=== PATIENT | female | born 1970 | race Caucasian/White ===

== ENCOUNTER 2025-03-29 07:08 | Emergency (ER) | payer OTHER, SELFPAY ==
[2025-03-29] VITALS (42 sets, daily range): BP systolic 86–113; BP diastolic 57–73; PULSE 73–107; RESP 12–20; TEMP 36.7–36.9; O2SAT 97–100
--- NOTE | ~2025-03-29 | XR_ITS ---
Examination: XR chest 1V portable Clinical History: dizzy, weak Comparison: None Technique: Portable AP Findings: Heart size normal. Lungs clear. No acute bony abnormality. IMPRESSION: 1. No acute cardiopulmonary findings given portable technique. Reviewed, dictated and finalized at location R.
--- NOTE | ~2025-03-29 | XR_ITS ---
X-rays left hip with pelvis Indication: Postop Comparison: None Technique: 2 views left hip, with AP pelvis Findings/Impression: 1. Left hip prosthesis. Slight gap between prosthetic neck and lesser trochanter. Otherwise no periprosthetic lucency or fracture. 2. No pelvic or right hip abnormality identified given single projection. Reviewed, dictated and finalized at location R.
--- NOTE | 2025-03-29 07:14 | ECG_ITS ---
Test Date: 2025-03-29 07:13:53 Measurements Intervals [place] Rate: 90 P: 11 NC: 178 QRS: -12 QRSD: 89 T: 14 QT: 346 QTc: 424 Interpretive Statements SINUS RHYTHM LOW QRS VOLTAGE IN PRECORDIAL LEADS [QRS DEFLECTION < 1.0 mV IN CHEST LEADS] OTHERWISE NORMAL ECG No previous ECG available for comparison Electronically Signed On 03-29-2025 16:15:03 CDT by Mark Anthony Espinoza M.D.
--- NOTE | 2025-03-29 07:22 | PC.NURSE ---
Pt arrived via ems with IVF running. made aware [facility] to continue NS IVF bolus.
[2025-03-29] MEDS: SODIUM CHLORIDE 0.9% IV 1,000 ML 999 ML IV CONT (07:23)
--- NOTE | 2025-03-29 07:34 | ED_ITS ---
HPI - General Adult General Chief complaint: Fever Stated complaint: fever Time Seen by Provider: 03/29/25 07:18 History of Present Illness HPI narrative: 54-year-old female presenting to the emergency department for evaluation for rapid heart rate low blood pressure and feeling ill in general. Patient states she did have a hip replacement on the left done at [facility] 2 days ago. Patient reports that she suspect she had significant blood loss because her hemoglobin had dropped and they kept her overnight due to low blood pressure. Patient reports she had been eating and drinking well a yesterday. this morning patient woke up to take some extra Tylenol because she was having some left hip pain and noticed that she just did not feel well and suspected she was having rapid heart rate it was until approximately 6:00 a.m. when she put her watch on and noticed that her heart rate was running approximately 180 beats per minute. Patient did take an aspirin at that time and states within 30 minutes her heart rate did improve. upon arrival emergency department patient did have some low blood pressure with a systolic blood pressure 89/60. Patient states her blood pressure typically runs 100/60. Patient denies any worsening left hip pain. Patient denies any nausea vomiting diarrhea. Patient does have some cough at time of evaluation. Related Data Allergies Allergy/AdvReac Type Severity Reaction Status Date / Time nitrofurantoin Allergy Unknown HIVES Verified 03/29/25 07:11 rice AdvReac Severe Anaphylaxis Verified 03/29/25 07:11 levofloxacin AdvReac Unknown BODY ACHES Verified 03/29/25 07:11 hives Review of Systems 2 Review of Systems: All systems reviewed & are unremarkable except as noted in HPI and below Exam 2 Narrative: APPEARANCE: Well appearing, no pain, no distress, well-nourished. HEAD: normocephalic, atraumatic. EYES: PERRLA/EOMI, conjunctivae clear. NOSE: Normal no drainage EARS:TMS clear with good light reflex. THROAT: Pharynx clear, no exudate. NECK: Supple. No adenopathy, no masses. RESPIRATORY: Airway patent, respirations nonlabored. Clear to auscultation bilaterally, no rales, rhonchi, wheezing. CARDIOVASCULAR: Regular rate and rhythm without murmurs rubs or gallops. ABDOMINAL: Soft, nontender, nondistended, normal bowel sounds MUSCULOSKELETAL: Dressing intact over left hip with no significant tenderness or erythema, some medial ecchymosis NEURO: Alert. Cranial nerves II through XII intact. Good gait. Good coordination SKIN: Warm, dry. Normal Color Course Vital Signs Vital signs: Vital Signs Temperature 98.5 F 03/29/25 07:04 Pulse Rate 103 H 03/29/25 07:04 Respiratory Rate 16 03/29/25 07:04 Blood Pressure 89/60 L 03/29/25 07:04 Pulse Oximetry 100 03/29/25 07:04 Oxygen Delivery Room Air 03/29/25 07:04 Temperature 98.1 F 03/29/25 09:30 Pulse Rate 76 03/29/25 12:18 Respiratory Rate 13 03/29/25 12:18 Blood Pressure 113/73 03/29/25 12:18 Pulse Oximetry 100 03/29/25 12:18 Oxygen Delivery Room Air 03/29/25 07:04 Medical Decision Making MDM Narrative Medical decision making narrative: 54-year-old female presents to the emergency department for evaluation for tachycardia and feeling ill this morning. Patient reports her blood pressure typically runs around 105 systolic. During patient's orthostatic vitals this was her general pressure. Patient reports she does feel improved after rehydration. Patient did receive 2 L of lactated Ringer's. Patient is currently afebrile with no leukocytosis and hemoglobin of 7.3. This is similar to her postop hemoglobin level. Family states that the patient lost approximately 1 L blood during the procedure. Patient's INR is 1.2. No acute abnormalities on the patient's CMP. Patient's CRP is mildly elevated but this could be explained by the recent surgical procedure UA was negative for infection patient was negative for influenza RSV and for COVID. Hip x-ray showed no evidence postop complication chest x-ray was negative for acute cardiopulmonary abnormality. On re-evaluation patient does feel improved and after lengthy discussion with both patient and family are comfortable the plan for discharge to home. They will be discharged home with additional Reglan for nausea control. Patient was advised to start iron supplementation after her stomach settles down. She was also encouraged close follow-up with her primary care physician and with her surgeon. They were also encouraged to return to the emergency department if they had any worsening symptoms. All questions concerns were addressed. Differential Diagnosis Differential Diagnosis: cellulitis, UTI, pulmonary embolism, pneumonia, COVID, RSV, influenza, postop infection Vital Signs Vital Signs: Vital Signs Temperature 98.5 F 03/29/25 07:04 Pulse Rate 103 H 03/29/25 07:04 Respiratory Rate 16 03/29/25 07:04 Blood Pressure 89/60 L 03/29/25 07:04 Pulse Oximetry 100 03/29/25 07:04 Oxygen Delivery Room Air 03/29/25 07:04 Temperature 98.1 F 03/29/25 09:30 Pulse Rate 76 03/29/25 12:18 Respiratory Rate 13 03/29/25 12:18 Blood Pressure 113/73 03/29/25 12:18 Pulse Oximetry 100 03/29/25 12:18 Oxygen Delivery Room Air 03/29/25 07:04 Lab Data Lab results reviewed: Yes I reviewed the patient's lab results. 03/29/25 07:47 03/29/25 07:47 Labs: Lab Results 03/29/25 03/29/25 Range/Units 07:47 10:29 WBC 8.6 (4.5-10.0) K/mm3 RBC 2.51 L (4.2-5.4) M/mm3 Hgb 7.3 L (12.0-15.0) g/dL Hct 22.6 L (37.0-47.0) % MCV 90.0 (80-100) fl MCH 29.1 (26-34) pg MCHC 32.3 (32-36) g/dl RDW 13.6 (11.5-14.5) % Plt Count 124 L (150-375) k/mm3 MPV 11.6 H (7.4-10.4) fl Immature Gran % (Auto) 0.5 (0-0.5) % Neut % (Auto) 75.5 H (45.5-73.1) % Lymph % (Auto) 15.1 L (18.3-44.2) % Luce % (Auto) 8.0 (2.6-8.5) % Eos % (Auto) 0.3 (0-4.4) % Baso % (Auto) 0.6 (0.2-1.2) % Lymph # (Auto) 1.30 (0.9-3.2) K/mm3 Luce # (Auto) 0.7 H (0.1-0.6) K/mm3 Eos # (Auto) 0.0 (0-0.3) K/mm3 Baso # (Auto) 0.1 (0.0-0.1) K/mm3 Abs Immat Gran (auto) 0.04 H (0.00-0.031) K/mm3 Absolute Neuts (auto) 6.5 (1.3-6.7) K/mm3 Absolute Nucleated RBC 0.000 (0.0-0.012) K/mm3 Nucleated RBC % 0.0 (0.0-0.2) % % Immature Plt Fraction 5.3 (0.9-11.2) % PT 15.2 H (11.1-14.7) Seconds INR 1.2 APTT 29.3 (22.3-36.8) Seconds Sodium 136 L (137-145) mmol/L Potassium 3.4 (3.4-5.0) mmol/L Chloride 107 (98-107) mmol/L Carbon Dioxide 23 (22-30) mmol/L Anion Gap 6 (4-12) mmol/L BUN 12 (7-17) mg/dL Creatinine 0.72 (0.7-1.0) mg/dL Estim Creat Clear Calc 96 ml/min Estimated GFR > 60 (59 - ) Glucose 98 (65-110) mg/dL Lactic Acid 1.1 (0.7-2.0) mmol/L Calcium 7.7 L (8.4-10.2) mg/dL Total Bilirubin 0.1 L (0.2-1.3) mg/dL AST 52 H (14-36) U/L ALT 15 (6-35) U/L Alkaline Phosphatase 41 (38-126) U/L C-Reactive Protein 3.8 H (<1.0) mg/dL Total Protein 5.1 L (6.3-8.2) g/dL Albumin 2.9 L (3.5-5.1) g/dL Urine Color Yellow (Yellow) Urine Appearance Clear (Clear) Urine pH 5.5 (5.0-9.0) Ur Specific [place] 1.018 (1.001-1.035) Urine Protein Negative (Negative) mg/dL Urine Glucose (UA) Negative (Negative) mg/dL Urine Ketones Negative (Negative) mg/dL Ur Blood (Man) Negative (Negative) Urine Nitrate Negative (Negative) Urine Bilirubin Negative (Negative) Urine Urobilinogen 0.2 (<2.0) mg/dL Leukocyte Esterase Rfl Negative (Negative) SEVERO/UL Influenza A (RT-PCR) Negative (Negative) Influenza B (RT-PCR) Negative (Negative) RSV (RT-PCR) Negative (Negative) SARS-CoV-2 RNA (RT-PCR) Negative (Negative) Imaging Data Radiologist's impression: Impressions Chest X-Ray 03/29/25 08:47 IMPRESSION: 1. No acute cardiopulmonary findings given portable technique. ECG Data EKG #1: EKG Interpretation: normal rate, sinus rhythm, no ectopy, non-specific ST changes, normal QRS and NL axis Discharge Plan Discharge Clinical Impression: Anemia, Orthostatic hypotension, Episodic lightheadedness Patient Disposition: Home Condition: Stable Instructions: Antibiotic Form, Clear Liquid Diet (ED), Acute Nausea and Vomiting (DC) Additional Instructions: Zofran as needed for nausea control. Reglan as needed for additional nausea control. Follow a clear liquid diet for the next 1-3 days. Advance to bland diet as tolerated. Continue have close follow-up with your primary care physician and with orthopedics as needed. If you have any worsening symptoms then please call or return to the emergency department. Patient Language: [place] Prescriptions: New metoclopramide HCl [Reglan] 10 mg tablet 10 mg PO Q6H PRN (Reason: nausea and vomiting) Qty: 14 0RF Follow-up/Referrals: SEWING,POLI Travis D.O. [Non-Staff]
[2025-03-29] MEDS: LACTATED RINGERS 1,000 ML 999 ML IV CONT (08:00)
[2025-03-29 08:01] LABS: Hematocrit 22.6 % (37.0-47.0); Hemoglobin 7.3 g/dL (12.0-15.0); Immature Granulocyte Percent A 0.5 % (0-0.5); Immature Platelet Fraction Pct 5.3 % (0.9-11.2); Lymphocytes Absolute Auto 1.30 K/mm3 (0.9-3.2); Mean Corpuscular HGB Conc 32.3 g/dl (32-36); Mean Corpuscular Hemoglobin 29.1 pg (26-34); Mean Corpuscular Volume 90.0 fl (80-100); Nucleated Red Blood Cells Absolute Auto 0.000 K/mm3 (0.0-0.012); Nucleated Red Blood Cells Perc 0.0 % (0.0-0.2); Platelet Count Result 124 k/mm3 (150-375); Red Blood Count 2.51 M/mm3 (4.2-5.4); White Blood Count 8.6 K/mm3 (4.5-10.0)
[2025-03-29] MEDS: LACTATED RINGERS 900 ML 999 ML IV CONT (08:01)
[2025-03-29 08:13] LABS: Alanine Aminotransferase 15 U/L (6-35); Albumin Level 2.9 g/dL (3.5-5.1); Alkaline Phosphatase 41 U/L (38-126); Anion Gap 6 mmol/L (4-12); Aspartate Amino Transferase 52 U/L (14-36); Bilirubin,Total 0.1 mg/dL (0.2-1.3); Blood Urea Nitrogen 12 mg/dL (7-17); Calcium 7.7 mg/dL (8.4-10.2); Carbon Dioxide 23 mmol/L (22-30); Chloride 107 mmol/L (98-107); Estimated CRCL calculation 96 ml/min; Estimated Glomerular Filt Rate > 60; Glucose 98 mg/dL (65-110); Potassium 3.4 mmol/L (3.4-5.0); Sodium 136 mmol/L (137-145); Total Protein 5.1 g/dL (6.3-8.2)
[2025-03-29 08:17] LABS: CRP 3.8 mg/dL (<1.0)
[2025-03-29 08:18] LABS: INR 1.2; Partial Thromboplastin Time 29.3 Seconds (22.3-36.8); Prothrombin Time 15.2 Seconds (11.1-14.7)
[2025-03-29 08:49] LABS: Influenza A QL RT-PCR Negative (Negative); Influenza B QL RT-PCR Negative (Negative); RSV RNA, RT-PCR Negative (Negative); SARS-CoV-2 RNA PCR Negative (Negative)
[2025-03-29 10:36] LABS: Add Urine Microscopic? NO; Appearance Urine Clear (Clear); Glucose Urine UA Negative (Negative); Leukocyte Esterase Ur Negative LEU/UL (Negative); Nitrate Urine Negative (Negative); Specific Grav Ur 1.018 (1.001-1.035)
== END 2025-03-29 12:26 | disposition home or self-care (01) ==
PROVIDERS: Emergency Provider Emergency Medicine
DX: I95.1 Orthostatic hypotension (principal); D64.9 Anemia, unspecified; R42 Dizziness and giddiness; Z20.822 Contact with and (suspected) exposure to COVID-19; Z96.642 Presence of left artificial hip joint
CPT/HCPCS: 36415; 71045; 73502; 80053; 81003; 83605; 85025; 85055; 85610; 85730; 86140; 87040; 87637; 93005; 96360; 99284; J7030; J7120